=== PATIENT | male | born 1945 | race Caucasian/White ===

== ENCOUNTER 2019-06-04 09:22 | Inpatient (IN) ==
--- NOTE | 2019-05-03 16:12 | PAT Medication Instructions ---
Medication Instructions Date of Service May 03, 2019 Home Medications ascorbic acid (vitamin C) [Vitamin C] 500 mg PO QAM 04/26/19 [History Confirmed 04/26/19] aspirin [Aspirin Low Dose] 81 mg PO QAM 04/26/19 [History Confirmed 04/26/19] cholecalciferol (vitamin D3) [Vitamin D3] 3,000 unit PO QAM 04/26/19 [History Confirmed 04/26/19] cyanocobalamin (vitamin B-12) [Vitamin B-12] 2,500 mcg SUBLINGUAL QAM 04/26/19 [History Confirmed 04/26/19] ibuprofen 400 - 600 mg PO DAILY PRN 04/26/19 [History Confirmed 04/26/19] lactobacillus combination no.4 [Probiotic] 3,000 mmu cells PO QAM 04/26/19 [History Confirmed 04/26/19] losartan 100 mg PO QAM 04/26/19 [History Confirmed 04/26/19] multivitamin 1 tab PO QAM 04/26/19 [History Confirmed 04/26/19] tamsulosin 0.4 mg PO QAM 04/26/19 [History Confirmed 04/26/19] ASK your surgeon for instructions ibuprofen 400 - 600 mg PO DAILY PRN 04/26/19 [History Confirmed 04/26/19] DO NOT take the morning of surgery ascorbic acid (vitamin C) [Vitamin C] 500 mg PO QAM 04/26/19 [History Confirmed 04/26/19] cholecalciferol (vitamin D3) [Vitamin D3] 3,000 unit PO QAM 04/26/19 [History Confirmed 04/26/19] cyanocobalamin (vitamin B-12) [Vitamin B-12] 2,500 mcg SUBLINGUAL QAM lactobacillus combination no.4 [Probiotic] 3,000 mmu cells PO QAM losartan 100 mg PO QAM 04/26/19 [History Confirmed 04/26/19] multivitamin 1 tab PO QAM 04/26/19 [History Confirmed 04/26/19] Take morning of surgery With a small sip of water, OTHERWISE NOTHING TO EAT OR DRINK AFTER MIDNIGHT: aspirin [Aspirin Low Dose] 81 mg PO QAM 04/26/19 [History Confirmed 04/26/19] tamsulosin 0.4 mg PO QAM 04/26/19 [History Confirmed 04/26/19] Other Notes If you have any questions please call us at [phone] or [phone] or [phone] or [phone]
--- NOTE | 2019-05-06 08:01 | History & Physical Report ---
Date of Service May 06, 2019 date of surgery: 06/04/19 Assessment & Plan (1) Tricompartment osteoarthritis of right knee: Risks and benefits of procedure discussed in detail today, patient would like to proceed with a Right total knee replacement at [facility] as scheduled. will obtain medical clearance prior to surgery as well as obtain PATs at [facility]. Will place on ASA 81mg po bid x 1 month post op, f/u 2 weeks post op for routine post-operative care and x-ray, sooner if having any problems. will make arrangements for HHPT at the time of discharge. At this point in time, has failed conservative measures and would like to proceed with surgical intervention. History of Present Illness Chief Complaint: Right knee pain Primary Care Provider: Almaz Drake Mr Cuenca is a 73 year old male who complains of right knee pain, presents for pre-op evaluation prior to a right total knee replacement at [facility]. He presents with pain, decreased motion and stiffness in his right knee. He states that the symptoms have been chronic non-traumatic and has gradually worsened over the years. The symptoms occur constantly with intermittent worsening. Currently the patient states that the symptoms are moderate and he describes the pain as sharp as aching. He rates his current pain as 5/10. The symptoms are aggravated by daily activities including walking, standing and using stairs. Allergies Allergy/AdvReac Type Severity Reaction Status Date / Time No Known Allergies Allergy Verified 04/26/19 08:56 Home Medications Home Medications Medication Instructions Recorded Confirmed Type ascorbic acid (vitamin C) [Vitamin 500 mg PO QAM 04/26/19 04/26/19 History C] aspirin [Aspirin Low Dose] 81 mg PO QAM 04/26/19 04/26/19 History cholecalciferol (vitamin D3) 3,000 unit PO QAM 04/26/19 04/26/19 History [Vitamin D3] cyanocobalamin (vitamin B-12) 2,500 mcg SUBLINGUAL QAM 04/26/19 04/26/19 History [Vitamin B-12] ibuprofen 400 - 600 mg PO DAILY PRN 04/26/19 04/26/19 History lactobacillus combination no.4 3,000 mmu cells PO QAM 04/26/19 04/26/19 History [Probiotic] losartan 100 mg PO QAM 04/26/19 04/26/19 History multivitamin 1 tab PO QAM 04/26/19 04/26/19 History tamsulosin 0.4 mg PO QAM 04/26/19 04/26/19 History Past Med/Surg History Medical History History of diverticulitis History of prostate cancer HAD SEED IMPLANT 2011 Hypertension Osteoarthritis Slow to wake up after anesthesia Surgical History History of left knee replacement Hx of colonoscopy Family History Unknown No family history of adverse response to anesthesia Social History Preferred Language: Belarusian Communication Ability: Effective Beliefs That Will Affect Care: None Current Living Situation: Significant Other Feels Safe at Home: Yes Smoking Status: Former smoker Do You Dip or Chew Tobacco: Yes (CHEWS 1 CAN PER WEEK) ; Smoking End Date: 1999 ; Second Hand Exposure: No ; Hx Alcohol Use: Yes Alcohol type: beer Hx Substance Use: No Review of Systems Review of Systems: All systems reviewed & are unremarkable except as noted in HPI & below Constitutional: no fever, no chills and no sweats Respiratory: no cough and no dyspnea Cardiovascular: no chest pain, no dyspnea and no orthopnea Gastrointestinal: no abdominal pain, no nausea and no vomiting Musculoskeletal: as per Subjective / HPI Physical Exam Physical Exam: Ht: 5ft 9in Wt: 108.86kg BP: 126/70 Pulse: 72 Constitutional: WD/WN, vitals as above no acute distress Respiratory: normal respiratory effort, lungs clear to auscultation no respiratory distress, no labored breathing and does not use accessory muscles Cardiovascular: RRR, no murmur, no edema Gastrointestinal (Abdomen): normal bowel sounds, soft, nontender, no hepatosplenomegaly Musculoskeletal: Knee: + knee abnormal to inspection (Right knee- ), + effusion (+1 effusion), + surgical incision (well healed portals), + limited ROM of knee (ROM 0/3/110), + knee ROM with crepitation, + joint line tenderness (medial joint line) and + Yareli's sign positive; no deformity, no skin erythema, no ecchymosis, no valgus laxity, no varus laxity, anterior drawer test negative, Zack's sign negative and pivot shift test negative Results & Data Diagnostic Findings right knee x-ray from 04/22/19 showing complete loss joint space medial compartment with overall varus alignment, there is also narrowing of the lateral compartment and patellofemoral joint. there is osteophyte formation, subchondral sclerosis noted, no loose bodies, no acute bony pathology. overall impression tricompartmental degenerative changes to the right knee.
--- NOTE | 2019-05-06 11:37 | Anesthesiology Consultation ---
Date of Service May 06, 2019 Assessment & Plan (1) Encounter for pre-operative examination: - Awaiting review preop testing (labs, EKG, CXR). - Awaiting surgeon-ordered PCP preop evaluation (Dr. Drake). - Patient prefers to go by "Ac" Chart Review Chart Review: Patient seen in Pre Admission Testing Teaching & Discussion Pre-Anesthesia Teaching/Discussion Notes: Instructed NPO after midnight before surgery,except medications with 15 cc of water. Medication instructions provided according to the PAT guidelines. History Surgery Operation Date: 06/04/19 08:45 Proposed Procedures p Right Total Knee Arthroplasty - Mauro Tripp DO Height/Weight Height: 5 ft 9 in Weight: 108.3 kg Allergies Allergy/AdvReac Type Severity Reaction Status Date / Time No Known Allergies Allergy Verified 04/26/19 08:56 Medications Home Medications Medication Instructions Recorded Confirmed Last Taken ascorbic acid (vitamin C) [Vitamin 500 mg PO QAM 04/26/19 04/26/19 Unknown C] aspirin [Aspirin Low Dose] 81 mg PO QAM 04/26/19 04/26/19 Unknown cholecalciferol (vitamin D3) 3,000 unit PO QAM 04/26/19 04/26/19 Unknown [Vitamin D3] cyanocobalamin (vitamin B-12) 2,500 mcg SUBLINGUAL QAM 04/26/19 04/26/19 Unknown [Vitamin B-12] ibuprofen 400 - 600 mg PO DAILY PRN 04/26/19 04/26/19 Unknown lactobacillus combination no.4 3,000 mmu cells PO QAM 04/26/19 04/26/19 Unknown [Probiotic] losartan 100 mg PO QAM 04/26/19 04/26/19 Unknown multivitamin 1 tab PO QAM 04/26/19 04/26/19 Unknown tamsulosin 0.4 mg PO QAM 04/26/19 04/26/19 Unknown Past Medical History Medical History History of diverticulitis History of prostate cancer s/p seed implant (2011) Hypertension Obesity Osteoarthritis Exercise / Class Metabolic Activity II 4-5 Yardwork/Stairs/Walk up hill (one flight of stairs (no chest pain/no sob)) Past Family History Family History Unknown No family history of adverse response to anesthesia Past Surgical History Surgical History History of left knee replacement Hx of colonoscopy Past Anesthesia History No Family Hx of Anesthesia Complications and Other "Slow to wake"/no known hx of reintubation. History of PONV No Hx of PONV and No Hx of Motion Sickness Social History Smoking Status: Former smoker Do You Dip or Chew Tobacco: Yes (1 CAN/WEEK- ADVISED NPO) Smoking End Date: Quit 1999 Hx Alcohol Use: Yes Alcohol type: beer alcohol intake frequency: a few times a week Hx Substance Use: No Review of Systems Rare palpitations. Patient denies chest pain, shortness of breath, dyspnea on exertion, cough, wheezing, palpitations. Physical Exam Vital Signs VITALS BP 131/87 (patient states he forgot to take BP medication this morning/advised compliance) P 66 TEMP 98.0 SP02 98%RA RESP 16 PHYSICAL Full neck and c-spine range of motion. Full TMJ range of motion. TMD 4 finger breaths Mallampati Score 2 Dentition: missing molars, upper front bridge/lower left and right side bridges (per patient, advised if plan for dental work prior to surgery to make surgeon aware) Lungs: clear throughout to auscultation Cardiac: regular rate and rhythm, no murmurs noted Spine: normal Carotid arteries: negative bruit Extremities: no edema
--- NOTE | 2019-05-06 12:36 | XRay Report ---
XR chest Pre-admission PA/Lat HISTORY: 73 years-old Male pat preoperative exam. No acute chest complaints COMPARISON: Chest radiograph 03/19/2012 TECHNIQUE: PA and lateral views of the chest FINDINGS: Cardiomediastinal and hilar silhouettes are within normal limits. Mild biapical pleural thickening is unchanged. There is no pneumothorax, pleural effusion, focal airspace consolidation or overt pulmona ry edema. Degenerative changes of the shoulders and spine. IMPRESSION: No acute process. The above report was generated using voice recognition software. It may contain grammatical, syntax o r spelling errors. Electronically signed by: Pedro Her M.D. 05/06/2019 12:34 PM
[2019-05-06 14:35] LABS: Basophils # (auto) 0.02 K/uL (0-0.2); Basophils % (auto) 0.3 %; Eosinophils # (auto) 0.15 K/uL (0-0.5); Eosinophils % (auto) 1.9 %; Hematocrit (blood only) 44.6 % (42-52); Hemoglobin 15.2 g/dL (14.0-18.0); Immature Granulocytes # (auto) 0.02 K/uL (0.00-0.02); Immature Granulocytes % (auto) 0.3 %; Lymphocytes % (auto) 23.3 %; Mean Corpuscular Hemoglobin 33.2 pg (25-34); Mean Corpuscular Hgb Conc 34.1 g/dL (32-36); Mean Corpuscular Volume 97.4 fL (80-100); Mean Platelet Volume 12.7 fL (7.4-10.4); Monocytes # (auto) 0.96 K/uL (0.11-0.59); Monocytes % (auto) 12.4 %; Neutrophils # (auto) 4.78 K/uL (1.4-6.5); Neutrophils % (auto) 61.8 %; Platelet Count 204 K/uL (130-400); RDW Standard Deviation 46.2 fL (36.4-46.3); Red Blood Count 4.58 M/uL (4.7-6.1); White Blood Count 7.73 K/uL (4.8-10.8)
[2019-05-06 14:48] LABS: Appearance Urine Clear (Clear); Bilirubin Urine Negative (Negative); Blood Urine Negative (Negative); Color Urine Yellow; Glucose Urine UA Negative (Negative); Ketones Urine Negative (Negative); Leukocyte Esterase Urine Negative (Negative); Nitrite Urine Negative (Negative); Protein Urine Negative (Negative); Specific Gravity Urine 1.019 (1.000-1.030); Urobilinogen Urine Negative (Negative); pH Urine 7.5 (4.5-7.5)
[2019-05-06 14:54] LABS: Partial Thromboplastin Time 26.5 Seconds (21.0-31.0); Prothrombin Time 10.7 Seconds (9.0-12.0)
[2019-05-06 14:58] LABS: Albumin Level 3.9 gm/dl (3.4-5.0); BUN Creatinine Ratio 12.9 (10-20); Calcium 9.5 mg/dl (8.5-10.1); Creatinine Clr Calc Pharmacy 73.4 ml/min; Est GFR (African American) 76.2; Est GFR (Non-African American) 65.7; Potassium 4.3 mmol/L (3.5-5.1)
[2019-05-06 15:08] LABS: Estimated Average Glucose 111 mg/dl; Hemoglobin A1C 5.5 % (4.5-5.6)
[~2019-06-04 09:22] MED LIST: ACETAMINOPHEN 500 MG TAB PO SCH; BUPIVACAINE 0.5 % 5 MG/1 ML PF 10ML VIAL ONE; CEFAZOLIN 2000MG 2,000 MG/15 ML SYR IV SCH; CeleBREX 200 MG CAP PO SCH; FAMOTIDINE 20 MG TAB PO SCH; GABAPENTIN 300 MG CAP PO SCH; LR 500ML BOLUS, THEN 15ML/HR IV SCH; MIDAZOLAM HCL 1 MG/ML 2ML VIAL ONE; ROPIVACAINE 0.5% HCL/PF 150 MG, BUPIVACAINE 0.5% MPF 30 ML, EPINEPHrine 30MG/30ML (OR U... INFIL SCH; ROPIVACAINE 0.5% HCL/PF 150 MG, BUPIVACAINE 0.5% MPF 30 ML, EPINEPHrine 30MG/30ML (OR U... INSTIL SCH; TRANEXAMIC ACID 1,000 MG **IV Intra-op IV SCH; TRANEXAMIC ACID 1,000 MG **IV Pre-op IV SCH; dexAMETHasone 4 MG TAB PO SCH; fentaNYL citrate 100 MCG/2 ML VIAL ONE
--- NOTE | 2019-06-04 09:54 | History & Physical Bridge Note ---
Date of Service June 04, 2019 History & Physical Bridge Note I have examined the patient, reviewed the History & Physical and in the interval since the performance of the History & Physical I have noted the following changes of clinical significance: no changes noted
[2019-06-04] MEDS ORDERED: BACITRACIN INJ 50,000 UNIT VIAL ONE (10:30)
[2019-06-04] MEDS ORDERED: ORTHO JOINT ANESTHETIC ONE (10:30)
[2019-06-04] MEDS ORDERED: ePHEDrine sulfate 50 MG/ML AMP IV PRN (10:38)
[2019-06-04] MEDS ORDERED: ATROPINE SULFATE 0.1 MG/ML 10ML SYR IV PRN (10:38)
[2019-06-04] MEDS ORDERED: ONDANSETRON INJ 2 MG/ML 2 ML VIAL IV PRN ×2 (10:38→14:39)
[2019-06-04] MEDS ORDERED: fentaNYL citrate 100 MCG/2 ML VIAL IV PRN (10:38)
[2019-06-04] MEDS ORDERED: TRANEXAMIC ACID / 0.7% NACL 1000MG/100ML BAG IV ONE (10:47)
[2019-06-04] MEDS ORDERED: PROPOFOL IV EMULSION 10 MG/ML 20 ML VIAL IV ONE (11:35)
--- NOTE | 2019-06-04 12:11 | Operative Report ---
Post Operative Report Pre & Post Diagnosis Operation Date: 06/04/19 11:15 Pre-Op Diagnosis: Tricompartment osteoarthritis of right knee Post-Op Diagnosis: Tricompartment osteoarthritis of right knee I identified the patient and participated in the time-out.: Yes Procedure Operation Date: 06/04/19 11:15 Actual Procedures p Right Total Knee Arthroplasty(Right) utilizing [employer] Nephew journey 2 patient matched total knee arthroplasty size 7 femur 7 tibia 11 polyethylene 35 oval patella- Mauro Tripp DO Surgeon Mauro Tripp DO Malware Analyst Beau BARAHONA Estimated Blood Loss 5 Findings Consistent with Post-Op Diagnosis Patient presents with severe end-stage tricompartmental degenerative joint disease of the right knee for right total knee arthroplasty intraoperative findings include marginal osteophytes subchondral cystic changes eburnated bone [id number] varus alignment with moderate to large effusion Specimens Bone and cartilage Drains Medium bore Hemovac Complications none Disposition Accompanied Patient To Recovery: No Disposition: Recovery Room Indications Patient presents with complaints of pain to the right knee no response to conservative management and physical therapy anti-inflammatories relative rest activity modification corticosteroid injections Visco supplementations the above intraoperative findings no time surgery. Description of Procedure After proper identification of the patientAfter proper prepping and draping of the Right lower extremity anterior midline incision was made over the region of the extensor extensor mechanism after meticulous hemostasis was obtained and maintained in subcutaneous tissues a medial parapatellar incision was made The patella was subluxed lateralward the medial lateral gutter were cleaned from any hypertrophic synovitis and scar tissue of the distal femoral block was placed and the distal femoral osteotomy cut was made subsequently the chamfers anterior and posterior osteotomy cuts were made utilizing the 4-in-1 block the tibia was subsequently subluxed anteriorward medial and ateral meniscal remnants were ex cised in their entirety remnants of the anterior and posterior cruciate ligaments were excised in their entirety excellent exposure of the proximal tibia was obtained the tibial osteotomy guide was placed on the proximal tibial osteotomy cut was made once again the knee was irrigated with copious amounts of sterile saline solution the patella was subsequently everted lateralward thickened scar tissue around the patella was removed the patella was subsequently cut utilizing a freehand technique and was drilled prepared for final preparation and placement of patella socially flexion-extension gaps were checked and the equal and symmetric trials were placed to the appropriate femoral and tibial trials with poly-spacer being placed for equal flexion and extension gaps and full range of motion including extension to 0 and flexion to 140 the trial components after having been taken to recovery range of motion was subsequently removed meticulous hemostasis was obtained and maintained subsequently a knee block injection of joint cocktail including ropivacaine 0.5% 150 mg. Bupivacaine 0.5% epinephrine 1-200,030 mL's toradol 30 mg dexamethasone 4 mg ketamine 10 mg clonidine 100 micrograms normal saline solution 30 mg was infiltrated into the soft tissues of the posterior knee medial lateral gutters and periosteal synovium special attention was paid to protect neurovascular structures at all times subsequently trial components having been removed the knee was irrigated with sterile saline solution. debris was removed the proximal tibia was subsequently prepared and was made ready for the placement of the tibial component tibial component was also cemented and tamped into position the femoral component was subsequently placed and cemented in the position the patellar component was subsequently cemented in position because hemostasis once again obtained and maintained wound having been thoroughly irrigated with debridement and debridement lavage was performed as well as a medial parapatellar incision closed with #1 Vicryl in interrupted fashion subcutaneous was closed with #2 Vicryl skin was closed with skin clips. PA-C was necessary for prepping and drapping as well as wound closure of deep fascia Sub cutaneous tissue and skin and was necessary for the case. A sterile compressive dressing was placed patient was taken to recovery in stable condition of report dictated by Qasim I attest to the content of the Intraoperative Record and any orders documented therein. Any exceptions are noted below. I attest to the content of the Intraoperative Record and any orders documented therein. Any exceptions are noted below.
--- NOTE | 2019-06-04 13:40 | XRay Report ---
RIGHT KNEE 2 VIEWS History: Right total knee arthroplasty. Degenerative arthritis. Postop. FINDINGS: The patient is status post a right total knee arthroplasty. The hardware is intact. No frac ture or dislocation. Surgical drains are in place. IMPRESSION: Right total knee arthroplasty. No evidence for hardware complication. Electronically signed by: Mitch Moyer M.D. 06/04/2019 1:38 PM
--- NOTE | 2019-06-04 13:58 | Anesthesiology Progress Note ---
Date of Service June 04, 2019 Anesthesia Post Procedure Vital Signs Vital Signs: Temp Pulse Pulse Resp BP Pulse Ox 06/04/19 13:50 61 12 122/89 96 06/04/19 13:40 62 12 109/76 92 06/04/19 13:30 63 14 114/59 L 94 06/04/19 13:20 75 16 114/86 97 06/04/19 13:10 84 14 112/84 100 06/04/19 13:00 97.0 F L 79 12 111/74 99 06/04/19 10:25 98.6 F 79 20 119/79 98 Transfer of Care Handoff Completed per policy Notes Mental Status: alert / awake / arousable and participated in evaluation Patient Amnestic to Procedure: Yes Nausea / Vomiting: adequately controlled Pain: adequately controlled Airway Patency, RR, SpO2: stable & adequate BP & HR: stable & adequate Hydration State: stable & adequate Neuraxial Anesthesia: was administered and sensory block is resolving Anesthetic Complications: no major complications apparent and Pt Satisfied with anesthetic care
[2019-06-04] MEDS ORDERED: bisacodyL 10 MG SUPP PR PRN (14:39)
[2019-06-04] MEDS ORDERED: METOCLOPRAMIDE HCL INJ 5 MG/ML 2 ML VIAL IV PRN (14:39)
[2019-06-04] MEDS ORDERED: NALOXONE HCL 0.4 MG/1 ML VIAL/CARP IV PRN (14:39)
[2019-06-04] MEDS ORDERED: SODIUM CHLORIDE 0.9% 1000ML 1,000 ML IV SCH (14:39)
[2019-06-04] MEDS ORDERED: MAGNESIUM HYDROXIDE SUSP 30 ML UDC PO PRN (14:39)
[2019-06-04] MEDS ORDERED: HYDROmorphone INJ 0.5 MG/0.5 ML SYR IV PRN (14:39)
[2019-06-04] MEDS: FERROUS GLUCONATE 324 MG TAB PO SCH (18:13)
[2019-06-04] MEDS: CEFAZOLIN 2000MG 2,000 MG/15 ML SYR IV SCH (19:29)
[2019-06-04] MEDS: SENNA 8.6 MG TAB PO SCH (20:57)
[2019-06-04] MEDS: DOCUSATE SODIUM 100 MG CAP PO SCH (20:57)
[2019-06-04] MEDS: ASPIRIN 81 MG ECTAB PO SCH (20:58)
[2019-06-04] MEDS: ACETAMINOPHEN 500 MG TAB PO SCH (20:58)
[2019-06-05] MEDS: CEFAZOLIN 2000MG 2,000 MG/15 ML SYR IV SCH (03:12)
[2019-06-05] MEDS: ACETAMINOPHEN 500 MG TAB PO SCH ×3 (06:03→21:13)
[2019-06-05 06:54] LABS: Hematocrit (blood only) 35.6 % (42-52); Hemoglobin 12.3 g/dL (14.0-18.0); Mean Corpuscular Hemoglobin 32.9 pg (25-34); Mean Corpuscular Hgb Conc 34.6 g/dL (32-36); Mean Corpuscular Volume 95.2 fL (80-100); Mean Platelet Volume 10.3 fL (7.4-10.4); Platelet Count 278 K/uL (130-400); RDW Coefficient of Variation 13.1 % (11.5-14.5); RDW Standard Deviation 45.3 fL (36.4-46.3); Red Blood Count 3.74 M/uL (4.7-6.1); White Blood Count 20.23 K/uL (4.8-10.8)
[2019-06-05 07:25] LABS: BUN Creatinine Ratio 16.2 (10-20); Calcium 9.3 mg/dl (8.5-10.1); Creatinine Clr Calc Pharmacy 58.1 ml/min; Est GFR (African American) 58.7; Est GFR (Non-African American) 50.6; Potassium 3.9 mmol/L (3.5-5.1)
--- NOTE | 2019-06-05 07:47 | Orthopedic Progress Note ---
Date of Service June 05, 2019 Assessment & Plan (1) History of total right knee replacement: POD #1 s/p Right TKA pt/ot dvt proph with ARMIDA/SCD/ASA plan for d/c home with OPPT, recheck drain output after PT today, discharge pending. Subjective POD #1 s/p Right TKA Review of Systems Constitutional: no fever, no chills and no sweats Respiratory: no cough and no dyspnea Cardiovascular: no chest pain and no dyspnea Gastrointestinal: no abdominal pain, no nausea and no vomiting Physical Exam Physical Exam: Vital Signs Temp 36.5 C 06/05/19 07:26 Pulse 78 06/05/19 07:26 Resp 16 06/05/19 07:26 BP 128/82 06/05/19 07:26 Pulse Ox 100 06/05/19 07:26 Intake & Output 06/04/19 06/05/19 06/05/19 18:59 06:59 18:59 Intake Total 1800 / 1800 Output Total 35 / 1140 1105 / 1140 Balance 1765 / 660 -1105 / 660 Weight 104.78 kg Intake: IV 1000 / 1000 Lr 1,000 ml @ 15 mls/hr IV . 800 / 800 Q24H KESHA Rx#:[id number] TRANEXAMIC ACI D / 0.7% NACL 1, 200 / 200 000 mg In 100 ml @ 600 mls/hr IV TODAY@0600 KESHA Rx#:[id number] IV Perioperative 800 / 800 Output: Urine 575 / 575 Estimated Blood Loss 5 / 5 Drain Output 30 / 560 530 / 560 Right Knee 30 / 560 530 / 560 Constitutional: WD/WN, vitals as above no acute distress Musculoskeletal: Right Leg: NVDI, calf SNT, negative dillon sign. DP palpable, able to wiggle toes/ankle movement without difficulty. dressing clean dry and intact. Results & Data Vital Signs (Past 12 Hours) Vital Signs Temp Pulse Resp BP Pulse Ox 06/05/19 07:26 36.5 C 78 16 128/82 100 06/05/19 03:15 36.6 C 70 18 145/87 H 98 06/04/19 23:15 36.6 C 63 16 121/78 98 Laboratory Results Laboratory Results WBC 20.23 K/uL (4.8-10.8) H 06/05/19 06:32 RBC 3.74 M/uL (4.7-6.1) L 06/05/19 06:32 Hgb 12.3 g/dL (14.0-18.0) L 06/05/19 06:32 Hct 35.6 % (42-52) L 06/05/19 06:32 MCV 95.2 fL (80-100) 06/05/19 06:32 MCH 32.9 pg (25-34) 06/05/19 06:32 MCHC 34.6 g/dL (32-36) 06/05/19 06:32 RDW Std Deviation 45.3 fL (36.4-46.3) 06/05/19 06:32 RDW Coeff of Lucero 13.1 % (11.5-14.5) 06/05/19 06:32 Plt Count 278 K/uL (130-400) 06/05/19 06:32 MPV 10.3 fL (7.4-10.4) 06/05/19 06:32 Immature Gran % (Auto) 0.3 % 05/06/19 12:00 Neut % (Auto) 61.8 % 05/06/19 12:00 Lymph % (Auto) 23.3 % 05/06/19 12:00 [place] % (Auto) 12.4 % 05/06/19 12:00 Eos % (Auto) 1.9 % 05/06/19 12:00 Baso % (Auto) 0.3 % 05/06/19 12:00 Immature Gran # (Auto) 0.02 K/uL (0.00-0.02) 05/06/19 12:00 Neut # (Auto) 4.78 K/uL (1.4-6.5) 05/06/19 12:00 Lymph # (Auto) 1.80 K/uL (1.2-3.4) 05/06/19 12:00 [place] # (Auto) 0.96 K/uL (0.11-0.59) H 05/06/19 12:00 Eos # (Auto) 0.15 K/uL (0-0.5) 05/06/19 12:00 Baso # (Auto) 0.02 K/uL (0-0.2) 05/06/19 12:00 PT 10.7 Seconds (9.0-12.0) 05/06/19 12:00 INR 1.0 (0.9-1.1) 05/06/19 12:00 APTT 26.5 Seconds (21.0-31.0) 05/06/19 12:00 PTT Ratio 1.0 05/06/19 12:00 Sodium 139 mmol/L (136-145) 06/05/19 06:32 Potassium 3.9 mmol/L (3.5-5.1) 06/05/19 06:32 Chloride 106 mmol/L (98-107) 06/05/19 06:32 Carbon Dioxide 26 mmol/L (21-32) 06/05/19 06:32 Anion Gap 7.0 (3-11) 06/05/19 06:32 BUN 23 mg/dl (7-18) H 06/05/19 06:32 Creatinine 1.39 mg/dl (0.6-1.4) 06/05/19 06:32 Est Cr Clr Drug Dosing 58.1 ml/min 06/05/19 06:32 Est GFR ( Amer) 58.7 06/05/19 06:32 Est GFR (Non-Af Amer) 50.6 06/05/19 06:32 BUN/Creatinine Ratio 16.2 (10-20) 06/05/19 06:32 Glucose 122 mg/dl (70-99) H 06/05/19 06:32 Estimat Average Glucose 111 mg/dl 05/06/19 12:00 Hemoglobin A1c 5.5 % (4.5-5.6) 05/06/19 12:00 Calcium 9.3 mg/dl (8.5-10.1) 06/05/19 06:32 Albumin 3.9 gm/dl (3.4-5.0) 05/06/19 12:00 Urine Color Yellow 05/06/19 12:00 Urine Appearance Clear (Clear) 05/06/19 12:00 Urine pH 7.5 (4.5-7.5) 05/06/19 12:00 Ur Specific [place] 1.019 (1.000-1.030) 05/06/19 12:00 Urine Protein Negative (Negative) 05/06/19 12:00 Urine Glucose (UA) Negative (Negative) 05/06/19 12:00 Urine Ketones Negative (Negative) 05/06/19 12:00 Urine Blood Negative (Negative) 05/06/19 12:00 Urine Nitrite Negative (Negative) 05/06/19 12:00 Urine Bilirubin Negative (Negative) 05/06/19 12:00 Urine Urobilinogen Negative (Negative) 05/06/19 12:00 Ur Leukocyte Esterase Negative (Negative) 05/06/19 12:00 Blood Type O Positive 05/06/19 12:00 Antibody Screen NEGATIVE 05/06/19 12:00 Diagnostic Findings RIGHT KNEE 2 VIEWS History: Right total knee arthroplasty. Degenerative arthritis. Postop. FINDINGS: The patient is status post a right total knee arthroplasty. The hardware is intact. No fracture or dislocation. Surgical drains are in place. IMPRESSION: Right total knee arthroplasty. No evidence for hardware complication.
[2019-06-05] MEDS: FERROUS GLUCONATE 324 MG TAB PO SCH ×2 (09:00→18:09)
[2019-06-05] MEDS: TAMSULOSIN HCL 0.4 MG CAP PO SCH (09:01)
[2019-06-05] MEDS: DOCUSATE SODIUM 100 MG CAP PO SCH ×2 (09:01→21:13)
[2019-06-05] MEDS: ASPIRIN 81 MG ECTAB PO SCH ×2 (09:01→21:13)
[2019-06-05] MEDS: LOSARTAN POTASSIUM 50 MG TAB PO SCH (09:01)
[2019-06-05] MEDS: LACTOBACILLUS ACIDOPHILUS (FLORANEX) TAB PO SCH (09:02)
[2019-06-05] MEDS: CHOLECALCIFEROL 1,000 UNITS 25 MCG TAB PO SCH (09:02)
[2019-06-05] MEDS: MULTIVITAMIN TAB PO SCH (09:02)
[2019-06-05] MEDS: CYANOCOBALAMIN (VITAMIN B-12) 2,500 MCG TAB.SUBL SL SCH (09:02)
[2019-06-05] MEDS: OXYCODONE HCL IR 5 MG TAB (IMMEDIATE RELEASE) PO PRN (19:16)
[2019-06-05] MEDS: SENNA 8.6 MG TAB PO SCH (21:13)
[2019-06-06] MEDS: ACETAMINOPHEN 500 MG TAB PO SCH (06:06)
--- NOTE | 2019-06-06 07:16 | Orthopedic Progress Note ---
Date of Service June 06, 2019 Assessment & Plan (1) History of total right knee replacement: POD #2 s/p Right TKA pt/ot dvt proph with ARMIDA/SCD/ASA plan for d/c home with OPPT after PT today Subjective POD #2 s/p Right TKA Review of Systems Review of Systems: All systems reviewed & are unremarkable except as noted in HPI & below Constitutional: no fever and no chills Respiratory: no cough and no dyspnea Cardiovascular: no chest pain, no dyspnea and no orthopnea Gastrointestinal: no abdominal pain, no nausea and no vomiting Physical Exam Physical Exam: Vital Signs Temp 36.7 C 06/05/19 22:50 Pulse 69 06/05/19 22:50 Resp 18 06/05/19 22:50 BP 119/70 06/05/19 22:50 Pulse Ox 99 06/05/19 22:50 Intake & Output 06/05/19 06/06/19 06/06/19 18:59 06:59 18:59 Intake Total 1100 / 1650 550 / 1650 Output Total 225 / 350 125 / 350 Balance 875 / 1300 425 / 1300 Intake: Oral 1100 / 1650 550 / 1650 Output: Drain Output 225 / 350 125 / 350 Right Knee 225 / 350 125 / 350 Constitutional: WD/WN, vitals as above no acute distress Musculoskeletal: Right leg: NVDI, calf SNT, negative dillon sign. DP palpable, able to wiggle toes/ankle movement without difficulty. Prineo clean dry and intact. expected post-operative bruising noted. Results & Data Vital Signs (Past 12 Hours) Vital Signs Temp Pulse Resp BP Pulse Ox 06/05/19 22:50 36.7 C 69 18 119/70 99 Laboratory Results Laboratory Results WBC 20.23 K/uL (4.8-10.8) H 06/05/19 06:32 RBC 3.74 M/uL (4.7-6.1) L 06/05/19 06:32 Hgb 12.3 g/dL (14.0-18.0) L 06/05/19 06:32 Hct 35.6 % (42-52) L 06/05/19 06:32 MCV 95.2 fL (80-100) 06/05/19 06:32 MCH 32.9 pg (25-34) 06/05/19 06:32 MCHC 34.6 g/dL (32-36) 06/05/19 06:32 RDW Std Deviation 45.3 fL (36.4-46.3) 06/05/19 06:32 RDW Coeff of Lucero 13.1 % (11.5-14.5) 06/05/19 06:32 Plt Count 278 K/uL (130-400) 06/05/19 06:32 MPV 10.3 fL (7.4-10.4) 06/05/19 06:32 Immature Gran % (Auto) 0.3 % 05/06/19 12:00 Neut % (Auto) 61.8 % 05/06/19 12:00 Lymph % (Auto) 23.3 % 05/06/19 12:00 [place] % (Auto) 12.4 % 05/06/19 12:00 Eos % (Auto) 1.9 % 05/06/19 12:00 Baso % (Auto) 0.3 % 05/06/19 12:00 Immature Gran # (Auto) 0.02 K/uL (0.00-0.02) 05/06/19 12:00 Neut # (Auto) 4.78 K/uL (1.4-6.5) 05/06/19 12:00 Lymph # (Auto) 1.80 K/uL (1.2-3.4) 05/06/19 12:00 [place] # (Auto) 0.96 K/uL (0.11-0.59) H 05/06/19 12:00 Eos # (Auto) 0.15 K/uL (0-0.5) 05/06/19 12:00 Baso # (Auto) 0.02 K/uL (0-0.2) 05/06/19 12:00 PT 10.7 Seconds (9.0-12.0) 05/06/19 12:00 INR 1.0 (0.9-1.1) 05/06/19 12:00 APTT 26.5 Seconds (21.0-31.0) 05/06/19 12:00 PTT Ratio 1.0 05/06/19 12:00 Sodium 139 mmol/L (136-145) 06/05/19 06:32 Potassium 3.9 mmol/L (3.5-5.1) 06/05/19 06:32 Chloride 106 mmol/L (98-107) 06/05/19 06:32 Carbon Dioxide 26 mmol/L (21-32) 06/05/19 06:32 Anion Gap 7.0 (3-11) 06/05/19 06:32 BUN 23 mg/dl (7-18) H 06/05/19 06:32 Creatinine 1.39 mg/dl (0.6-1.4) 06/05/19 06:32 Est Cr Clr Drug Dosing 58.1 ml/min 06/05/19 06:32 Est GFR ( Amer) 58.7 06/05/19 06:32 Est GFR (Non-Af Amer) 50.6 06/05/19 06:32 BUN/Creatinine Ratio 16.2 (10-20) 06/05/19 06:32 Glucose 122 mg/dl (70-99) H 06/05/19 06:32 Estimat Average Glucose 111 mg/dl 05/06/19 12:00 Hemoglobin A1c 5.5 % (4.5-5.6) 05/06/19 12:00 Calcium 9.3 mg/dl (8.5-10.1) 06/05/19 06:32 Albumin 3.9 gm/dl (3.4-5.0) 05/06/19 12:00 Urine Color Yellow 05/06/19 12:00 Urine Appearance Clear (Clear) 05/06/19 12:00 Urine pH 7.5 (4.5-7.5) 05/06/19 12:00 Ur Specific Jay 1.019 (1.000-1.030) 05/06/19 12:00 Urine Protein Negative (Negative) 05/06/19 12:00 Urine Glucose (UA) Negative (Negative) 05/06/19 12:00 Urine Ketones Negative (Negative) 05/06/19 12:00 Urine Blood Negative (Negative) 05/06/19 12:00 Urine Nitrite Negative (Negative) 05/06/19 12:00 Urine Bilirubin Negative (Negative) 05/06/19 12:00 Urine Urobilinogen Negative (Negative) 05/06/19 12:00 Ur Leukocyte Esterase Negative (Negative) 05/06/19 12:00 Blood Type O Positive 05/06/19 12:00 Antibody Screen NEGATIVE 05/06/19 12:00
[2019-06-06 08:09] VITALS: BP 142/84; PULSE 59; TEMP 97.7; O2SAT 98
[2019-06-06] MEDS: OXYCODONE HCL IR 5 MG TAB (IMMEDIATE RELEASE) PO PRN ×2 (08:51→11:14)
[2019-06-06] MEDS: ASPIRIN 81 MG ECTAB PO SCH (08:51)
[2019-06-06] MEDS: CHOLECALCIFEROL 1,000 UNITS 25 MCG TAB PO SCH (08:52)
[2019-06-06] MEDS: MULTIVITAMIN TAB PO SCH (08:52)
[2019-06-06] MEDS: LOSARTAN POTASSIUM 50 MG TAB PO SCH (08:52)
[2019-06-06] MEDS: LACTOBACILLUS ACIDOPHILUS (FLORANEX) TAB PO SCH (08:52)
[2019-06-06] MEDS: CYANOCOBALAMIN (VITAMIN B-12) 2,500 MCG TAB.SUBL SL SCH (08:52)
[2019-06-06] MEDS: TAMSULOSIN HCL 0.4 MG CAP PO SCH (08:52)
[2019-06-06] MEDS: DOCUSATE SODIUM 100 MG CAP PO SCH (08:52)
[2019-06-06] MEDS: FERROUS GLUCONATE 324 MG TAB PO SCH (09:57)
--- NOTE | 2019-06-10 10:56 | Discharge Summary ---
Date of Service June 10, 2019 Admission HPI Per Admitting Provider Mr Cuenca is a 73 year old male who complains of right knee pain, presents for pre-op evaluation prior to a right total knee replacement at [facility]. He presents with pain, decreased motion and stiffness in his right knee. He states that the symptoms have been chronic non-traumatic and has gradually worsened over the years. The symptoms occur constantly with intermittent worsening. Currently the patient states that the symptoms are moderate and he describes the pain as sharp as aching. He rates his current pain as 5/10. The symptoms are aggravated by daily activities including walking, standing and using stairs. Admission Exam Per Admitting Provider Physical Exam: Ht: 5ft 9in Wt: 108.86kg BP: 126/70 Pulse: 72 Constitutional: WD/WN, vitals as above no acute distress Respiratory: normal respiratory effort, lungs clear to auscultation no respiratory distress, no labored breathing and does not use accessory muscles Cardiovascular: RRR, no murmur, no edema Gastrointestinal (Abdomen): normal bowel sounds, soft, nontender, no hepatosplenomegaly Musculoskeletal: Knee: + knee abnormal to inspection (Right knee- ), + effusion (+1 effusion), + surgical incision (well healed portals), + limited ROM of knee (ROM 0/3/110), + knee ROM with crepitation, + joint line tenderness (medial joint line) and + Yareli's sign positive; no deformity, no skin erythema, no ecchymosis, no valgus laxity, no varus laxity, anterior drawer test negative, Zack's sign negative and pivot shift test negative Principal Diagnosis Djd right knee Discharge Exam Constitutional: WD/WN, vitals as above no acute distress Musculoskeletal: Right leg: NVDI, calf SNT, negative dillon sign. DP palpable, able to wiggle toes/ankle movement without difficulty. Prineo clean dry and intact. expected post-operative bruising noted. Discharge Data Allergies Allergy/AdvReac Type Severity Reaction Status Date / Time No Known Allergies Allergy Verified 06/04/19 10:08 Consultations 06/04/19 14:39 Consult Case Management - Discharge Planning Routine Procedures Performed Operation Date: 06/04/19 11:15 Actual Procedures p Right Total Knee Arthroplasty(Right) - Mauro Tripp DO Ordered Studies 06/04/19 05:00 US - OR guided needle placemen Routine Hospital Course (1) Tricompartment osteoarthritis of right knee: Patient was admitted on the above-noted date and had the above-noted surgery performed which they tolerated well.On the first postoperative day, vital signs were stable and he was afebrile. The patient had no overt complaints and pain was controlled. Dressings were clean, dry, and intact. Neurovascular is intact. Calves are soft and nontender. Toes were mobile. Hemoglobin was 12.3. Hemovac drainage was 180 mL's from the previous shift morning. The patient was started on PT and OT protocols and continued on DVT prophylaxis and pain management. By the second postoperative day, the patient continued to remain stable. Vital signs are stable and they were afebrile. Incision was remaining intact and dry. Calves are soft nontender and neurovascular is intact. HV drain was removed. The patient was progressing with his physical therapy and remaining stable and was felt that he could be discharged home. Total Time Total Time Spent Total Time Spent (In Minutes): 5 Discharge Plan Discharge Items Patient Disposition: Home - Self-Care Reason For Visit: Right Knee Osteoarthritis Discharge Diagnosis: right total knee replacement Condition on Discharge: Good Activity: Per Instructions section Lifting: Wait until after follow-up appointment Weightbearing: Full weightbearing and Right weightbearing Non-emergency contact: Surgeon Call non-emergency contact if: you have any medication questions, your temperature is above 101, your wound has increased redness, your wound has increased drainage and your wound pain has increased Follow-up/Referrals: Almaz Drake D.OLucrecia [Primary Care Provider] - Diet: Regular Addtl Attending Provider Instructions: ACTIVITY RECOMMENDATIONS: SELF CARE INSTRUCTIONS AFTER TOTAL KNEE REPLACEMENT A. You may need to continue a physical therapy program after discharge from the hospital. There are several options available to you. Your doctor will assist you in selecting the best one for you. 1. An out-patient facility 2 to 3 times a week for therapy or home therapy. 2. Continue working on all exercises taught to you in the hospital. Your goals should be to increase bending of your knee to 90 degrees and beyond and to fully straighten your knee. B. You may progress at your own pace from walking with a walker or crutches to a cane; then to no assistive devices. C. Make walking a part of your daily routine. Be up as much as comfortable with rest periods throughout the day. Rest with leg elevation is very important. Use the ice wrap frequently for the first 3-4 weeks. D. There are no restrictions on activities. You may ride in a car, shop, participate in rn charge and all social activities. E. Wear the long elastic stockings (ARMIDA hose) 20 hours a day for 2 weeks after surgery. They can be removed several times a day for laundering and for a bath. F. You may shower, no tub baths until cleared by your doctor. SPECIAL CARE INSTRUCTIONS: VERY IMPORTANT TO READ AND REVIEW A. There are a few signs you need to watch for after you are home. Call [facility] if you notice any of the followin. Increased severe knee pain. Some pain is expected especially when you exercise. 2. Increased swelling in your leg or knee; pain or swelling of the calf muscle in either lower leg. 3. Any fluid drainage from the incision. 4. Shortness of breath or chest pain. B. Please call [facility] at if you have any concerns or questions about your operation or recovery. The doctor or his nurse will return your call promptly. C. You must take antibiotics before dental work, bladder, bowel or other surgery. Your doctor will provide you with a permanent care to carry describing this precaution. IMPORTANT: * REMEMBER TO TAKE ASPIRIN, 81 MG, TWICE DAILY FOR 4 WEEKS UNLESS OTHERWISE DIRECTED. THIS IS YOUR BLOOD THINNER. * HIGH RISK PATIENTS MAY BE PRESCRIBED A STRONGER BLOOD THINNER. THIS WILL BE PROVIDED AT DISCHARGE. * CALL IF INCREASED PAIN, REDNESS, DRAINAGE OR FEVER GREATER THAT 101. * WEAR ARMIDA HOSE 20 HOURS PER DAY FOR 2 WEEKS. * DERMABOND Prineo- This is a mesh tape dressing that is covered with glue. It should remain in place until the incision is properly healed, usually 10-14 days. This dressing is designed to naturally slough off. You may trim the excess mesh tape as it peels off. Incision may be briefly wet in a shower. Dry immediately by blotting with a clean, dry towel. Do not bath or swim until instructed by your doctor. Do not scratch, rub, or pick at the dressing. Do not apply any topical ointments or lotions until dressing is completely removed and/or instructed by your doctor. There may be a small piece of suture material at one end of your incision. Do not pull or trim this. If it is bothersome or catching on clothing, you may cover it with a band-aid. IF INCISION IS LEAKING THROUGH DRESSING, CALL THE OFFICE . FOLLOW UP VISIT: If appointment is not already scheduled: Please call [facility] to make a follow-up appointment for 2 weeks after your surgery at . Pending Studies at Discharge: No Stand-Alone Forms: My [facility] [employer], Opioid Pain Management, Smoking Cessation Medications and DC Order Prescriptions: New aspirin [Ecotrin Low Strength] 81 mg Tablet,Delayed Release (Dr/Ec) 81 mg PO BID 30 Days Qty: 60 RF: 0 acetaminophen 500 mg Tablet 1,000 mg PO Q8 14 Days Qty: 84 RF: 0 oxycodone 5 mg Tablet 5 - 10 mg PO Q6H PRN (Reason: pain) Qty: 30 RF: 0 docusate sodium 100 mg Capsule 100 mg PO BID 10 Days Qty: 20 RF: 0 cefadroxil 500 mg capsule 500 mg PO BID 10 Days Qty: 20 RF: 0 Continued multivitamin Tablet 1 tab PO QAM RF: 0 cyanocobalamin (vitamin B-12) [Vitamin B-12] 2,500 mcg Tablet, Sublingual 2,500 mcg SUBLINGUAL QAM RF: 0 ascorbic acid (vitamin C) [Vitamin C] 500 mg Tablet 500 mg PO QAM RF: 0 tamsulosin 0.4 mg Capsule 0.4 mg PO QAM RF: 0 losartan 100 mg Tablet 100 mg PO QAM RF: 0 cholecalciferol (vitamin D3) [Vitamin D3] 1,000 unit Capsule 3,000 unit PO QAM RF: 0 Probiotic 3 billion cell Capsule 3,000 mmu cells PO QAM RF: 0 Discontinued aspirin [Aspirin Low Dose] 81 mg Tablet,Delayed Release (Dr/Ec) 81 mg PO QAM RF: 0 ibuprofen 200 mg Tablet 400 - 600 mg PO DAILY PRN (Reason: Pain) RF: 0 Discharge Orders: Discharge Order (Routine); Ordered 06/06/19 Ordered By: Rajinder Aguilar/Other Patient Handouts: DVT Prevent Admission Data Admit Date/Time: 06/04/19 13:11 Attending Provider: Mauro Tripp Admit Provider: Mauro Tripp Primary Care Provider: Almaz Drake Other Interventions: Discharge Summary Assessment (RN) Last Done: 06/06/19 10:16 DC Date/Time DO NOT enter until pt leaves facility: 06/06/19 12:36
== END 2019-06-06 12:36 | disposition home or self-care (01) | DRG 470 ==
LOC: ASU 09:22 → 3E 13:11